=== PATIENT | female | born 1985 | race Caucasian/White ===

== ENCOUNTER 2022-05-05 01:13 | Emergency (ER) | payer OTHER ==
[~2022-05-05] VITALS: Ht 160 cm; Wt 77.1 kg
[2022-05-05 01:15] VITALS: BP 124/68
--- NOTE | 2022-05-05 01:22 | NUR ---
TO BED 1 FROM TRIAGE
--- NOTE | 2022-05-05 01:26 | NUR ---
DR JANE NOTIFIED OF POSSIBLE SEPSIS ALERT. TO SEE PATIENT. NO ORDERS AT THIS TIME
[2022-05-05] MEDS ORDERED: MORPHINE SULFATE 4 MG/ML SYR IVP ONE (01:35)
[2022-05-05] MEDS ORDERED: ONDANSETRON 4 MG/2 ML VIAL IVP ONE ×2 (01:35→05:10)
[2022-05-05] MEDS ORDERED: NACL 0.9% 1,000 ML IV ONE ×2 (01:35→03:40)
[2022-05-05] MEDS ORDERED: ACETAMINOPHEN 325 MG TAB PO ONE (01:35)
--- NOTE | 2022-05-05 01:35 | NUR ---
PT WALKED IN C/O BILATERAL LOWER ABDOMINAL PAIN. PT REPORTS HX OF OVARIAN CYSTS. PT DENIES DYSURIA. + LOW BACK PAIN BUT THINKS IT IS FROM LYING DOWN ALL DAY. +N/V/D.
--- NOTE | 2022-05-05 01:39 | NUR ---
WALKED URINE TO LAB.
[2022-05-05 01:49] LABS: APPEARANCE,URINE CLEAR (CLEAR); BILIRUBIN,URINE NEGATIVE (NEGATIVE); BLOOD, URINE SMALL (NEGATIVE); COLOR,URINE YELLOW (YELLOW); LEUKOCYTE ESTERASE ,URINE TRACE (NEGATIVE); NITRITE, URINE POSITIVE (NEGATIVE); PH,URINE 8.5 (5.0-9.0); UGLUCOSE NEGATIVE (NEGATIVE)
--- NOTE | 2022-05-05 01:51 | NUR ---
PT ASKING FOR BLANKET. PT EDUCATED NO BLANKET WITH ACTIVE FEVER. PT VERBALIZES UNDERSTANDING.
[2022-05-05 01:58] LABS: BASOPHILS # (AUTO) 0.1 K/uL (0.00-0.22); BASOPHILS % (AUTO) 0.2 % (0.0-2.0); HEMATOCRIT 38.1 % (36-48); HEMOGLOBIN 12.5 g/dL (12.0-16.0); LYMPHOCYTES # (AUTO) 0.6 K/uL (2.5-16.5); MEAN CORPUSCULAR HEMOGLOBIN 28 pg (27-31); MEAN CORPUSCULAR HGB CONC 33 g/dL (33-37); MONOCYTES # (AUTO) 0.5 K/uL (0.8-1.0); MONOCYTES % (AUTO) 1.9 % (1.7-9.3); NEUTROPHILS # (AUTO) 27.3 K/uL (1.8-7.7); NEUTROPHILS % (AUTO) 95.9 % (42.2-75.2); PLATELET COUNT (AUTO) 320 K/uL (140-450); RED BLOOD CELL COUNT(AUTO) 4.48 MIL/uL (4.20-5.40); RED CELL DISTRIBUTION WIDTH 14.3 % (11.6-13.7)
[2022-05-05 02:04] LABS: ALBUMIN 4.2 g/dL (3.4-5.0); CARBON DIOXIDE 24.4 mmol/L (21-32); CREATININE 0.8 mg/dL (0.6-1.3); POTASSIUM 3.4 mmol/L (3.5-5.1); TOTAL BILIRUBIN 0.6 mg/dL (0.0-1.0); WHITE BLOOD COUNT (AUTO) 28.4 K/uL (4.8-10.8)
[2022-05-05] MEDS ORDERED: cefTRIAXone 1,000 MG VIAL ONE (02:25)
--- NOTE | 2022-05-05 02:35 | NUR ---
NOTIFIED PT STILL C/O PAIN. NO NEW ORDERS
[2022-05-05] MEDS ORDERED: KETOROLAC 15 MG/ML VIAL IVP ONE (03:25)
--- NOTE | 2022-05-05 03:30 | NUR ---
C/O PAIN AFTER RETURNING FROM [facility]. MEDICATED ORDERED
--- NOTE | 2022-05-05 03:38 | NUR ---
NOTIFIED PT HR STILL LOW 100S. VORB FOR 1L NS BOLUS
--- NOTE | 2022-05-05 04:24 | NUR ---
BELONGINGS LIST DONE.
[2022-05-05] MEDS ORDERED: HYDROmorphone PFS 2 MG/ML SYR IVP ONE (04:55)
[2022-05-05] MEDS ORDERED: ONDANSETRON 4 MG/2 ML VIAL ONE (05:10)
--- NOTE | 2022-05-05 06:27 | NUR ---
attempted to call report to [facility] @[phone]. call was answered and immediately hung up.
--- NOTE | 2022-05-05 06:33 | NUR ---
attempted to give report to [facility]- per community arts officer no one available to take report.
--- NOTE | 2022-05-05 06:35 | NUR ---
report given to Rafael WAYNE with [facility] ambulance.
--- NOTE | 2022-05-05 06:35 | NUR ---
Patient to be transferred to [facility]. Is being transferred due to INSURANCE REQUEST. Receiving facility has accepting physician and available space. ER physician has signed transfer form. Patient or responsible green party has agreed to transfer and signed form. Patient belongings inventoried and will be sent with patient. Copy of nursing notes, lab reports, EKG, Physicians Orders and X-rays to be sent with patient. PER JAZZ SINGER NO ONE AVAILABLE FOR REPORT at receiving facility, CALL DISCONNECTED. [facility] ambulance service has been called for transfer.
[2022-05-05 06:37] VITALS: BP 102/63
--- NOTE | 2022-05-05 06:41 | NUR ---
REPORT GIVEN TO LINDSAY BINGHAM AT [facility].
== END 2022-05-05 06:35 | disposition short-term general hospital (02) ==
LOC: MED 01:13
DX: A41.9 Sepsis, unspecified organism (principal); Z20.822 Contact with and (suspected) exposure to COVID-19; N39.0 Urinary tract infection, site not specified; K52.9 Noninfective gastroenteritis and colitis, unspecified; N83.209 Unspecified ovarian cyst, unspecified side
CPT/HCPCS: 36415; 74177; 80053; 81001; 81025; 83605; 83690; 85025; 87040; 87086; 87426; 93005; 96361; 96365; 96375; 96376; 99291; J0696; J1170; J1885; J2270; J2405; Q9967